=== PATIENT | female | born 1995 | race Caucasian/White ===

== ENCOUNTER 2019-09-07 13:24 | Emergency (ER) | payer BC, SELFPAY ==
[2019-09-07] VITALS (9 sets, daily range): BP systolic 100–124; BP diastolic 54–86; PULSE 50–74; RESP 14–18; TEMP 36.4–37; O2SAT 99–100
--- NOTE | ~2019-09-07 | CT_ITS ---
EXAMINATION: CT abdomen pelvis w con EXAM DATE: 09/07/2019 16:46 INDICATION: Vomiting, diarrhea, chills. Low abdominal pain and fatigue. Cancers gallbladder polyp. TECHNIQUE: Spiral CT of the abdomen and pelvis was performed following intravenous injection of 100 m L Omnipaque 350. Axial, coronal and sagittal images were reviewed. The dose-length product (DLP) fo r this examination was 770.48 mGy-cm. The exposure was tailored according to patient size (auto mA e xposure control), and iterative reconstruction (ASIR) was used as additional dose reduction technique . There is no prior study for comparison. FINDINGS: There is gastric bypass. The gastric pouch is moderate distended with fluid, could be bile accumulation. Mildly edematous appearing pylorus without focal ulceration, possible peptic ulcer dise ase. The liver, spleen, adrenal glands and pancreas are unremarkable. There are cholecystectomy clip s. Portal and splenic veins are patent. Kidneys enhance symmetrically. There is no hydronephrosis. The uterus is anteverted and morphologically normal with IUD in position. Right ovary has a domina nt follicle measuring 3.8 cm. The bladder is unremarkable. There is no retroperitoneal or pelvic ly mphadenopathy. The appendix is normal. There is small amount of colonic stool. No free intraperitoneal gas. The heart is normal in size. There are no pericardial or pleural effusions. The lung bases are unremar kable. There are no osteoblastic or osteolytic lesions identified. IMPRESSION: Gastric bypass. Mild pyloric edema without discrete ulceration. Moderately distended flui d filled stomach. Possible gastric outlet or duodenal obstruction with bile accumulation. Possible pe ptic ulcer disease. Reviewed, dictated and finalized at location B. IMPRESSION: Gastric bypass. Mild pyloric edema without discrete ulceration. Mod erately distended fluid filled stomach. Possible gastric outlet or duodenal obs truction with bile accumulation. Possible peptic ulcer disease.
--- NOTE | 2019-09-07 14:00 | PC.NURSE ---
RN was unable to get IV access.
--- NOTE | 2019-09-07 14:20 | ED.NAVMDI ---
HPI - Nausea/Vomiting/Diarrhea General Chief complaint: Nausea/Vomiting/Diarrhea <Chelsea Joy MD - Last Filed: 09/08/19 18:16> Stated complaint: vomiting, diarrhea <Chelsea Joy MD - Last Filed: 09/08/19 18:16> Time Seen by Provider: 09/07/19 13:56 <Chelsea Joy MD - Last Filed: 09/08/19 18:16> Source: patient <Chelsea Joy MD - Last Filed: 09/08/19 18:16> Mode of arrival: ambulatory <Chelsea Joy MD - Last Filed: 09/08/19 18:16> Limitations: no limitations <Chelsea Joy MD - Last Filed: 09/08/19 18:16> History of Present Illness HPI Narrative: This patient is a 34 year old female who presents for evaluation of nausea, vomiting and diarrhea. Patient states she developed lower abdominal cramping with vaginal bleeding on Wednesday. She thought this was just due to menstrual cycle. She had some mild nausea at that time , but starting last night she has uncontrollable nausea and vomiting. She also notes diarrhea since yesterday as well. Her stool is a dark green since she takes IrOn. She reports in July she had melena so had colonoscopy and upper endoscopy performed. Her upper endoscopy was normal per patient. She states her colonoscopy shows colitis due frequent antibiotic use. <Chelsea Joy MD - Last Filed: 09/08/19 18:16> MD elicited complaint: nausea, vomiting, diarrhea and abdominal pain <Chelsea Joy MD - Last Filed: 09/08/19 18:16> Related Data Home medications: Home Medications Medication Instructions Recorded Confirmed ferrous sulfate 7.5 mg PO DAILY 09/07/19 09/07/19 linaclotide [Linzess] 145 mcg PO DAILY 09/07/19 09/07/19 [id number]-[id number]-vit K tablet PO 09/07/19 09/07/19 [Adults Multivitamin] nitrofurantoin macrocrystal 50 mg PO QID 09/07/19 09/07/19 pantoprazole [Protonix] 20 mg PO HS 09/07/19 09/07/19 <Chelsea Joy MD - Last Filed: 09/08/19 18:16> Allergies/Adverse reactions: Allergies Allergy/AdvReac Type Severity Reaction Status Date / Time iodoquinol Allergy Unknown Verified 09/07/19 13:53 levofloxacin [From Levaquin] Allergy Rash Verified 09/07/19 13:53 Penicillins Allergy Itching Verified 09/07/19 13:53 <Chelsea Joy MD - Last Filed: 09/08/19 18:16> Review of Systems Review of Systems: All systems reviewed & are unremarkable except as noted in HPI and below <Chelsea Joy MD - Last Filed: 09/08/19 18:16> Constitutional: Constitutional: Denies chills, Denies fever(s) and Reports weakness <Chelsea Joy MD - Last Filed: 09/08/19 18:16> ENT: Denies sore throat <Chelsea Joy MD - Last Filed: 09/08/19 18:16> Cardiovascular: Cardiovascular: Denies chest pain <Chelsea Joy MD - Last Filed: 09/08/19 18:16> Respiratory: Respiratory: Denies cough and Denies dyspnea <Chelsea Joy MD - Last Filed: 09/08/19 18:16> Gastrointestinal: Gastrointestinal: Reports abdominal pain, Reports diarrhea, Reports nausea and Reports vomiting <Chelsea Joy MD - Last Filed: 09/08/19 18:16> Genitourinary: Genitourinary: Reports abnormal vaginal bleeding <Chelsea Joy MD - Last Filed: 09/08/19 18:16> [facility] Past Medical History Medical History: Medical History (Updated 09/07/19 @ 19:13 by Chelsea Joy MD) Colitis UTI (urinary tract infection) <Chelsea Joy MD - Last Filed: 09/08/19 18:16> Surgical History Surgical History: Surgical History (Updated 09/07/19 @ 19:13 by Chelsea Joy MD) History of Andreas-en-Y gastric bypass Hx of colonoscopy <Chelsea Joy MD - Last Filed: 09/08/19 18:16> Social History Social History: Social History (Updated 09/07/19 @ 14:22 by Chelsea Joy MD) Smoking status: Never smoker Alcohol use details: occasional Substance use type: marijuana Gender identity (if verbalized by the patient): Female <Chelsea Joy MD - Last Filed: 09/08/19 18:16> Exam [facility]
--- NOTE | 2019-09-07 14:44 | PC.NURSE ---
Rn attempted twice to obtain IV access with no success. This RN tried to call [facility] but she did not pharmacy picking tech [facility]. Having another RN attempt now.
[2019-09-07] MEDS: LACTATED RINGERS 1,000 ML 999 ML IV CONT (14:58)
[2019-09-07] MEDS: ONDANSETRON HCL ODT 4 MG TABLET PO (14:59)
[2019-09-07] MEDS: ONDANSETRON INJ 4 MG/2 ML VIAL IV PUSH (14:59)
[2019-09-07 15:18] LABS: Basophils Percent Auto 0.5 % (0.2-1.2); Eosinophils Percent Auto 0.2 % (0-4.4); Hematocrit 37.4 % (37.0-47.0); Immature Granulocyte Absolute 0.01 K/mm3 (0.00-0.031); Immature Granulocyte Percent A 0.2 % (0-0.5); Lymphocytes Absolute Auto 0.84 K/mm3 (0.9-3.2); Mean Corpuscular HGB Conc 32.1 g/dl (32-36); Mean Corpuscular Hemoglobin 27.3 pg (26-34); Mean Platelet Volume 11.1 fl (7.4-10.4); Monocytes Absolute Auto 0.1 K/mm3 (0.1-0.6); Monocytes Percent Auto 1.8 % (2.6-8.5); Neutrophils Percent Auto 83.3 % (45.5-73.1); Platelet Count Result 396 k/mm3 (150-375); Red Cell Distribution Width 14.3 % (11.5-14.5)
[2019-09-07 15:22] LABS: Alanine Aminotransferase 16 U/L (4-35); Albumin Level 5.1 g/dL (3.5-5.1); Alkaline Phosphatase 155 U/L (38-126); Aspartate Amino Transferase 27 U/L (14-36); Bilirubin,Total 1.6 mg/dL (0.2-1.3); Blood Urea Nitrogen 5 mg/dL (7-17); Calcium 9.6 mg/dL (8.4-10.2); Carbon Dioxide 25 mmol/L (22-30); Chloride 101 mmol/L (98-107); Estimated CRCL calculation 208 ml/min; Estimated Glomerular Filt Rate > 60; Glucose 126 mg/dL (65-105); Lipase 94 U/L (23-300); Potassium 3.8 mmol/L (3.4-5.0); Sodium 138 mmol/L (137-145)
[2019-09-07 15:28] LABS: Add Urine Microscopic? YES; Appearance Urine Clear (Clear); Bilirubin Urine Negative (Negative); Blood Urine Negative (Negative); Color Urine Yellow (Yellow); Glucose Urine UA Negative (Negative); Ketones Urine 2+ mg/dL (Negative); Leukocyte Esterase Ur Negative LEU/UL (Negative); Mucus Urine Heavy /lpf; Nitrate Urine Negative (Negative); Protein Urine 2+ mg/dL (Negative); Squamous Epithelial Cell Urine Many /hpf (Few); Urobilinogen Urine Negative mg/dL (<2.0)
[2019-09-07 15:32] LABS: Specific Grav Ur 1.035 (1.001-1.035)
[2019-09-07] MEDS: LACTATED RINGERS 1,000 ML 150 ML IV CONT (19:25)
[2019-09-07] MEDS: PANTOPRAZOLE SODIUM IV 40 MG VIAL IV PUSH (19:25)
[2019-09-07] MEDS: PROMETHAZINE HCL 25 MG/ML AMPUL 12.5 MG IV PUSH (19:25)
--- NOTE | 2019-09-07 19:36 | PC.NURSE ---
50mL NS used for dilution of Promethazine.
--- NOTE | 2019-09-07 23:36 | PC.NURSE ---
Called [facility] and spoke with Rustam turner: status on bed. He said there won't be anything available until after discharges in the morning.
[2019-09-08] VITALS (7 sets, daily range): BP systolic 101–123; BP diastolic 44–88; PULSE 63–78; RESP 12–18; TEMP 36.8–36.9; O2SAT 96–100
--- NOTE | 2019-09-08 02:15 | PC.NURSE ---
Spoke to Joanne from [facility] regarding COVID questions. Per Joanne no beds still available.
[2019-09-08 07:29] LABS: Basophils Percent Auto 0.7 % (0.2-1.2); Eosinophils Absolute Auto 0.1 K/mm3 (0-0.3); Eosinophils Percent Auto 1.1 % (0-4.4); Hematocrit 31.5 % (37.0-47.0); Hemoglobin 10.1 g/dL (12.0-15.0); Immature Granulocyte Absolute 0.01 K/mm3 (0.00-0.031); Immature Granulocyte Percent A 0.2 % (0-0.5); Lymphocytes Absolute Auto 2.28 K/mm3 (0.9-3.2); Lymphocytes Percent Auto 42.3 % (18.3-44.2); Mean Corpuscular HGB Conc 32.1 g/dl (32-36); Mean Corpuscular Hemoglobin 27.4 pg (26-34); Mean Corpuscular Volume 85.4 fl (80-100); Mean Platelet Volume 10.3 fl (7.4-10.4); Monocytes Absolute Auto 0.3 K/mm3 (0.1-0.6); Monocytes Percent Auto 6.1 % (2.6-8.5); Neutrophils Absolute Auto 2.7 K/mm3 (1.3-6.7); Neutrophils Percent Auto 49.6 % (45.5-73.1); Platelet Count Result 288 k/mm3 (150-375); Red Blood Count 3.69 M/mm3 (4.2-5.4); Red Cell Distribution Width 14.5 % (11.5-14.5); White Blood Count 5.4 K/mm3 (4.5-10.0)
[2019-09-08 07:44] LABS: Potassium 3.3 mmol/L (3.4-5.0)
[2019-09-08 07:47] LABS: Alanine Aminotransferase 11 U/L (4-35); Albumin Level 3.5 g/dL (3.5-5.1); Alkaline Phosphatase 103 U/L (38-126); Aspartate Amino Transferase 16 U/L (14-36); Bilirubin,Total 1.2 mg/dL (0.2-1.3); Blood Urea Nitrogen 6 mg/dL (7-17); Calcium 8.4 mg/dL (8.4-10.2); Carbon Dioxide 26 mmol/L (22-30); Chloride 105 mmol/L (98-107); Estimated CRCL calculation 171 ml/min; Estimated Glomerular Filt Rate > 60; Glucose 91 mg/dL (65-105); Lipase 85 U/L (23-300); Sodium 136 mmol/L (137-145)
[2019-09-08] MEDS: ONDANSETRON INJ 4 MG/2 ML VIAL IV PUSH ×2 (10:34→17:39)
[2019-09-08] MEDS: SODIUM CHLORIDE 0.9% IV 1,000 ML 150 ML IV CONT (14:42)
== END 2019-09-08 17:45 | disposition short-term general hospital (02) ==
PROVIDERS: General Practice; Emergency Provider Emergency Medicine; PCP Nurse Practitioner Adult Health
DX: R11.2 Nausea with vomiting, unspecified (principal); Z98.84 Bariatric surgery status; Z87.440 Personal history of urinary (tract) infections
CPT/HCPCS: 36415; 74177; 80053; 81001; 81025; 83690; 85025; 96361; 96365; 96374; 96375; 96376; 99285; A9270; C9113; J0131; J2405; J2550; J7030; J7120; Q9967

== ENCOUNTER 2020-03-26 08:23 | Outpatient (NON) | payer BC, SELFPAY ==
[2020-03-26 22:34] LABS: SARS-CoV-2 RNA PCR Negative
== END 2020-03-26 08:24 ==
LOC: ANHCOVIDDT 08:24
PROVIDERS: PCP Nurse Practitioner Adult Health; Visit Provider Nurse Practitioner Adult Health
DX: R05 Cough (principal); Z20.822 Contact with and (suspected) exposure to COVID-19
CPT/HCPCS: C9803; U0003; U0005